=== PATIENT | male | born 1985 | race Caucasian/White ===

== ENCOUNTER 2017-07-28 23:13 | Emergency (ER) | payer MEDICAID, OTHER ==
[~2017-07-28] VITALS: Ht 172.7 cm; Wt 80.0 kg
[2017-07-28 23:34] VITALS: BP 120/83; PULSE 74; RESP 18; TEMP 98.5; O2SAT 98
--- NOTE | 2017-07-29 00:48 | PD ---
HPI Chief Complaint: Psychiatric Symptoms Time Seen by Provider: 00:40 Travel History International Travel<30 days: No Contact w/Intl Traveler<30days: No Traveled to known affect area: No History of Present Illness HPI This patient has been transferred from [facility] for psychiatric evaluation. He is under Ortiz act. He was medically cleared at the sending hospital. See their notes for complete history of present illness. PFSH Social History Tobacco Use: No (Unknown) Review of Systems Except as stated in HPI: all other systems reviewed are Neg Physical Exam Narrative GENERAL: Sleeping SKIN: Warm and dry. HEAD: Atraumatic. Normocephalic. EYES: Pupils equal and round. No scleral icterus. No injection or drainage. ENT: No nasal bleeding or discharge. Mucous membranes pink and moist. NECK: Trachea midline. No JVD. CARDIOVASCULAR: Regular rate and rhythm. No murmur appreciated. RESPIRATORY: No accessory muscle use. Clear to auscultation. Breath sounds equal bilaterally. Data Data Last Documented VS Vital Signs Date Time Temp Pulse Resp B/P (MAP) Pulse Ox O2 Delivery O2 Flow Rate FiO2 07/28/17 23:34 98.5 74 18 120/83 (95) 98 Room Air Orders Orders Psych Screen (07/28/17 23:16) MDM Medical Decision Making Medical Screen Exam Complete: Yes Emergency Medical Condition: Yes Medical Record Reviewed: Yes Differential Diagnosis Acute psychosis, schizophrenia, bipolar disorder Narrative Course Medically cleared by [facility]. Diagnosis Primary Impression: Medical clearance for psychiatric admission James Thompson Jul 29, 2017 00:48
[2017-07-29 02:16] VITALS: BP_SYST 114; BP_SYST 117; BP_DIAS 58; BP_DIAS 70; PULSE 55; PULSE 80; RESP 17; RESP 18; TEMP 99.1; TEMP 99.4; O2SAT 97
[2017-07-29 06:22] VITALS: BP 110/64; PULSE 68; RESP 17; TEMP 98.5; O2SAT 96
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
--- NOTE | 2017-07-29 09:46 | PD ---
Physical Exam Date Seen by Provider: Jul 29, 2017 Time Seen by Provider: 09:45 Narrative Patient was seen and evaluated by the psychiatrist. Ortiz Act has been lifted by the psychiatrist. I was asked to discharge the patient. The patient denies any suicidal or homicidal thoughts. He feels comfortable going home. Data Data Last Documented VS Vital Signs Date Time Temp Pulse Resp B/P (MAP) Pulse Ox O2 Delivery O2 Flow Rate FiO2 07/29/17 06:22 98.5 68 17 110/64 (79) 96 Room Air Orders Orders Psych Screen (07/28/17 23:16) Diet Regular Basic (07/29/17 Breakfast) MDM Supervised Visit with ALIS: No Diagnosis Primary Impression: Polysubstance abuse Referrals: [facility] Patient Instructions: General Instructions, Polysubstance Abuse (ED) Additional Instruction: Follow up at [facility]. Return to the emergency department for any acute, worsening of symptoms. Med/Other Pt SpecificInfo: No Change to Meds Disposition: 01 DISCHARGE HOME Condition: Stable Belia Varghese Jul 29, 2017 09:46
== END 2017-07-29 10:34 | disposition home or self-care (01) ==
LOC: NEPJ 23:13
DX: F19.10 Other psychoactive substance abuse, uncomplicated (principal)
CPT/HCPCS: 99284